=== PATIENT | male | born 2005 | race Caucasian/White ===

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

== ENCOUNTER 2024-02-21 14:05 | Emergency (ER) | payer OTHER ==
--- NOTE | 2024-02-21 14:46 | ED Physician Documentation ---
PD HPI UPPER EXT INJURY - Stated complaint Stated Complaint: RT WRIST PX - Chief complaint Chief Complaint: Ext Problem - History obtained from History obtained from: Patient - History of Present Illness Location: Right, Wrist Type of injury: Fall Where injury occurred: Other (while skating) Timing - onset: Other (8 weeks ago) Timing - details: Abrupt onset, Still present Improved by: Rest, Immobilization Worsened by: Moving Recently seen: Other (wic with xrays, poss distal radius frx) PD PAST MEDICAL HISTORY - Past Medical History Cardiovascular: None Respiratory: None Neuro: None Endocrine/Autoimmune: None GI: None : None HEENT: None Psych: None Musculoskeletal: None Derm: None - Past Surgical History Past Surgical History: No - Present Medications Home Medications: Ambulatory Orders Medication Instructions Recorded Confirmed Metoclopramide HCl 5 mg PO PRN PRN 11/05/20 11/05/20 Ondansetron Odt [Zofran Odt] 4 mg TL Q6H PRN #14 11/05/20 - Allergies Allergies/Adverse Reactions: Allergies Allergy/AdvReac Type Severity Reaction Status Date / Time guaifenesin Allergy Intermediate Hives Verified 02/21/24 14:07 - Social History Does the pt smoke?: No Smoking Status: Never smoker Does the pt drink ETOH?: No Does the pt have substance abuse?: No - Immunizations Immunizations are current?: Yes - POLST Patient has POLST: No PD ED PE NORMAL - Vitals Vital signs reviewed: Yes - General General: Alert and oriented X 3, No acute distress - Extremities Extremities: Other (R wrist completely NTTP and FROM) - Neuro Neuro: Alert and oriented X 3 Results - Vitals Vitals: Vital Signs - 24 hr 02/21/24 02/21/24 14:08 16:18 Temperature 36.4 C L Heart Rate 93 66 Respiratory 16 15 Rate Blood Pressure 119/62 107/64 O2 Saturation 99 100 Oxygen O2 Source Room air - Rads (name of study) Right wrist x-ray demonstrates no fractures. Relevant Findings:: Final report received, EMP independent interpretation of test PD Medical Decision Making - ED course ED course: He still having pain almost 2 months out after a right wrist injury. 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 The numbers on this form. Call Saturday for an appointment. Return if worse. You can take Tylenol and/or ibuprofen as needed for pain. Forms: PCP List Discharge Date/Time: 02/21/24 16:19
--- NOTE | 2024-02-21 16:00 | XRAY Report ---
PROCEDURE: Wrist 3+V RT INDICATIONS: wrist inj, 4v pls TECHNIQUE: 4 views of the wrist were acquired. COMPARISON: 01/29/2024 FINDINGS: Bones: No fractures or dislocations. No suspicious bony lesions. Stable cortical step off of the la teral radial physis. Soft tissues: No suspicious soft tissue calcifications or masses. IMPRESSION: No acute bony abnormality. Stable cortical step off of the lateral radial physis, without interval bone remodeling. Findings lik iraida represent a closing physis. Reviewed by: Hunter Jackson MD on 02/21/2024 3:59 PM PDT Approved by: Hunter Jackson MD on 02/21/2024 3:59 PM PDT Station ID: [id number]
[2024-02-21 16:29] VITALS: BP 107/64; O2SAT 100
== END 2024-02-21 16:19 | disposition home or self-care (01) ==
LOC: ED 14:05
DX: M25.531 Pain in right wrist (principal)
CPT/HCPCS: 99283; 99284

== ENCOUNTER 2024-03-26 08:25 | Day surgery (SDC) | payer OTHER ==
[2024-03-26] MEDS ORDERED: LIDOCAINE-MPF 2% 5 ML VIAL ONE (08:44)
[2024-03-26] MEDS ORDERED: PROPOFOL 200 MG/20 ML VIAL IVP ONE (08:45)
[2024-03-26] MEDS ORDERED: PROPOFOL 500 MG/50 ML 500 MG/50 ML VIAL ONE (08:45)
[2024-03-26] MEDS: LACTATED RINGERS 1,000 ML IV ONE ×2 (08:46→10:12)
[2024-03-26] MEDS ORDERED: MIDAZOLAM 2 MG/2 ML VIAL ONE (08:47)
--- NOTE | 2024-03-26 09:36 | ANESTHESIA ---
Pre-Anesthesia VS, & Labs - Diagnosis family hx of crohns/change in bowel habits - Procedure colonoscopy Vital Signs: Temp Pulse Resp BP Pulse Ox O2 Flow Rate 36.3 C L 74 14 115/73 99 03/26/24 08:41 03/26/24 08:41 03/26/24 08:41 03/26/24 08:41 03/26/24 08:41 Height: 5 ft 10 in Weight (kg): 64 kg Body Mass Index: 20.2 BMI Classification: Normal - NPO Last Fluid Intake: 0700 Home Medications and Allergies Allergies/Adverse Reactions: Allergies Allergy/AdvReac Type Severity Reaction Status Date / Time guaifenesin Allergy Intermediate Hives Verified 02/21/24 14:07 Anes History & Medical History - Anesthetic History Anesthesia Complications: reports: No previous complications Family history of Anesthesia Complications: Denies - Medical History Cardiovascular: reports: None Pulmonary: reports: None Gastrointestinal: reports: Other Urinary: reports: None Neuro: reports: None Musculoskeletal: reports: None Endocrine/Autoimmune: reports: None Blood Disorders: reports: None Skin: reports: None Smoking Status: Never smoker Exam General: Alert, Oriented x3 Dental: WNL Mouth Openin Fingerbreadth Neck Mobility: Normal Mallampati classification: II Thyromental Distance: less than 4 cm Plan Anesthesia Type: Total IV Consent for Procedure(s) Verified and Reviewed: Yes Code Status: Attempt Resuscitation ASA classification: 1-Healthy patient Is this case an emergency?: No
--- NOTE | 2024-03-26 10:42 | ANESTHESIA POST OP EVALUATION ---
Anesthesia Post Eval - Post Anesthesia Eval Vitals: Last Vital Signs Temp 36.5 C 03/26/24 10:24 Pulse 73 03/26/24 10:34 Resp 21 03/26/24 10:34 BP 90/46 L 03/26/24 10:34 Pulse Ox 98 03/26/24 10:34 O2 Flow Rate CV Function Including HR & BP: Stable Pain Control: Satisfactory Nausea & Vomiting: Negative Mental Status: Baseline Respiratory Status: Airway Patent Hydration Status: Satisfactory Anesthesia Complications: None
[2024-03-26 10:56] VITALS: O2SAT 100
[2024-03-26 11:07] VITALS: BP 105/65
== END 2024-03-26 08:26 | disposition home or self-care (01) ==
LOC: SDS 08:25
PROVIDERS: ATTEND Surgery
PROC: 0DBL8ZX Excision of Transverse Colon, Via Natural or Artificial Opening Endoscopic, Diagnostic (ICD-10-PCS; 2024-03-26)
PROC: 0DBP8ZX Excision of Rectum, Via Natural or Artificial Opening Endoscopic, Diagnostic (ICD-10-PCS; 2024-03-26)
PROC: 0DBM8ZX Excision of Descending Colon, Via Natural or Artificial Opening Endoscopic, Diagnostic (ICD-10-PCS; 2024-03-26)
PROC: 0DBK8ZX Excision of Ascending Colon, Via Natural or Artificial Opening Endoscopic, Diagnostic (ICD-10-PCS; principal; 2024-03-26 09:30)
DX: K51.30 Ulcerative (chronic) rectosigmoiditis without complications (principal); R19.4 Change in bowel habit
CPT/HCPCS: 45380; J7120

== ENCOUNTER 2024-05-27 21:11 | Emergency (ER) | payer OTHER ==
[2024-05-27 21:19] VITALS: BP 117/71; O2SAT 99
--- NOTE | 2024-05-27 21:36 | ED Physician Documentation ---
History of Present Illness - Stated complaint Stated Complaint: LUNG/BACK PX - Chief complaint Chief Complaint: General - History obtained from History obtained from: Patient - Additonal information Additional information: Otherwise healthy 18-year-old gentleman developed pain inferior to the left scapula while watching movies tonight. It is worse if he moves his arms or swings his arms. It hurts to take a deep breath. That said he is not particularly short of breath per se. There was no injury and this is never happened before. Denies pedal edema or calf pain. PD PAST MEDICAL HISTORY - Past Medical History Past Medical History: Yes Cardiovascular: None Respiratory: None Neuro: None Endocrine/Autoimmune: None GI: Other : None HEENT: None Psych: None Musculoskeletal: None Derm: None - Past Surgical History Past Surgical History: No - Present Medications Home Medications: Ambulatory Orders Medication Instructions Recorded Confirmed No Known Home Medications 05/27/24 05/27/24 - Allergies Allergies/Adverse Reactions: Allergies Allergy/AdvReac Type Severity Reaction Status Date / Time guaifenesin Allergy Intermediate Hives Verified 05/27/24 21:19 - Social History Does the pt smoke?: No Smoking Status: Never smoker Does the pt drink ETOH?: No Does the pt have substance abuse?: No - Immunizations Immunizations are current?: Yes - POLST Patient has POLST: No PD ED PE NORMAL - Vitals Vital signs reviewed: Yes - General General: Alert and oriented X 3, No acute distress - Neck Neck: No bony TTP - Cardiac Cardiac: RRR, No murmur - Respiratory Respiratory: No respiratory distress, Clear bilaterally - Abdomen Abdomen: Non tender - Back Back: No spinal TTP - Neuro Neuro: Alert and oriented X 3 - Psych Psych: Normal mood, Normal affect Results - Vitals Vitals: Vital Signs - 24 hr 05/27/24 21:13 Temperature 36.5 C Heart Rate 72 Respiratory 17 Rate Blood Pressure 117/71 O2 Saturation 99 Oxygen O2 Source Room air - Rads (name of study) 2v [id number] Relevant Findings:: Final report received, EMP independent interpretation of test PD Medical Decision Making - ED course ED course: Sounds like a muscle spasm of the back. He was agreeable to some ibuprofen and a chest x-ray. His young age would make serious medical illness such as dissec tion or ACS very unlikely. Departure - Departure Disposition: 01 Home, Self Care Clinical Impression: Back pain Qualifiers: Back pain location: thoracic back pain Chronicity: acute Back pain laterality: left Qualified Code(s): M54.6 - Pain in thoracic spine Condition: Good Record reviewed to determine appropriate education?: Yes Instructions: ED Neck Back Pain General Comments: The chest x-ray looks okay. Given your description and the location I suspect you are having rhomboid muscle spasm, which is common. You can take ibuprofen as needed for the pain. You can do heat and gentle stretching as well. Return for new or worsening symptoms. Forms: PCP List
[2024-05-27] MEDS: IBUPROFEN 600 MG TABLET PO STA (21:44)
--- NOTE | 2024-05-27 21:52 | XRAY Report ---
PROCEDURE: Chest 2V INDICATIONS: back pain TECHNIQUE: 2 views of the chest were acquired. COMPARISON: 11/13/2015 FINDINGS: Surgical changes and devices: None. Lungs and pleura: No dense airspace disease or pleural effusion Mediastinum: Normal heart size. Partially seen moderate fecal loading and probable moderate distenti on of the stomach Bones and chest wall: Unremarkable. No acute vertebral body height loss of the partial evaluation of the thoracic spine. IMPRESSION: No dense airspace disease or pleural effusion. Partially visualized moderate fecal loading and probable moderate distention of the stomach. No acute vertebral body height loss identified on the partial evaluation of the thoracic spine. Reviewed by: Walt George MD on 05/27/2024 9:51 PM PDT Approved by: Walt George MD on 05/27/2024 9:51 PM PDT Station ID: [id number]
== END 2024-05-27 22:04 | disposition home or self-care (01) ==
LOC: ED 21:11
DX: M54.6 Pain in thoracic spine (principal)
CPT/HCPCS: 71046; 99283; A9270